=== PATIENT | female | born 1940 | race Caucasian/White ===

== ENCOUNTER 2019-01-06 14:16 | Inpatient (IN) | payer MEDICARE, OTHER, MEDICAID ==
[2019-01-06] MEDS ORDERED: Ketorolac 30 MG/ML SDV IM ONE (14:34)
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
--- NOTE | 2019-01-06 15:24 | CRLCR ---
Indication: Fall, pain Technique: Frontal view of the pelvis and two views left hip Comparison: None Findings: The pelvic ring and proximal left femur are intact. No fracture is demonstrated. The left femoroacetabular joint is anatomically aligned. Hip arthroplasty is noted on the right. There is no significant soft tissue edema. Impression: No acute fracture or dislocation. Dictated by Haylee Christian MD @ Jan 06 2019 3:23PM Signed by Dr. Haylee Christian @ Jan 06 2019 3:23PM
[2019-01-06] MEDS ORDERED: Sodium Chloride 0.9% 1,000 ML IV SCH (15:45)
--- NOTE | 2019-01-06 16:37 | CRLCT ---
HISTORY: Pain. TECHNIQUE: CT left hip without contrast. COMPARISON: Radiographs same day. FINDINGS: Chronic appearing deformity of the coccyx. Within the area of deformity is a possible acute fracture lucency (axial series 4 images 39-41). No other acute fracture. Mild left hip joint space narrowing with small marginal osteophytes. Right total hip arthroplasty. No periprosthetic lucency. No dislocation. Moderate amount of heterotopic ossification around the right hip. Mild degenerative arthrosis of the sacroiliac joints. Pubic symphysis is maintained. No lytic or blastic bone lesions. Atrophy of the right gluteus minimus and gluteus medius muscles. Atrophy of the right iliopsoas musculature. Atrophy of the left gluteus minimus muscle. No soft tissue hematoma. Atherosclerotic calcifications. Colonic diverticulosis. IMPRESSION: 1. Chronic appearing deformity of the coccyx with possible superimposed nondisplaced acute fracture. 2. No other acute findings. No proximal left femur fracture. 3. Mild osteoarthritis of the left hip. Please note that all CT scans at this facility use dose modulation, iterative reconstruction, and/or weight-based dosing when appropriate to reduce radiation dose to as low as reasonably achievable. Dictated by Malik Silver MD @ Jan 06 2019 4:11PM (Electronically Signed)
[2019-01-06] MEDS ORDERED: fentaNYL 100 MCG/2 ML SDV IVPUSH ONE (17:19)
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
[2019-01-06] MEDS ORDERED: Glucose Gel 15 GM in 37.5 GM Tube PO PRN (18:38)
[2019-01-06] MEDS ORDERED: Ondansetron 4 MG/2 ML SDV IV PRN (18:38)
[2019-01-06] MEDS ORDERED: Polyethylene Glycol 3350 Powder 17 GM Packet PO PRN (18:38)
[2019-01-06] MEDS ORDERED: Enoxaparin 30 MG/0.3 ML Syringe SUBCUT SCH (18:38)
[2019-01-06] MEDS ORDERED: Sodium Polystyrene Sulfonate 15 GM/60 ML Susp 60 ML Bot PO ONE (18:38)
[2019-01-06] MEDS ORDERED: 50% Dextrose in Water 50 ML Syringe IV PRN (18:38)
[2019-01-06] MEDS ORDERED: Sodium Chloride 0.9% 10 ML Syringe FLUSH PRN (18:38)
[2019-01-06] MEDS: Sodium Chloride 0.9% 1,000 ML IV SCH (19:24)
[2019-01-06] MEDS ORDERED: [UNRECOGNIZED DRUG - OTHER] SQ SCH (21:00)
[2019-01-06] MEDS ORDERED: INSULIN ASPART SQ SCH (21:00)
[2019-01-06] MEDS ORDERED: INSULN ASP PROT SQ SCH (21:00)
[2019-01-06] MEDS: atorvaSTATin 10 MG Tab PO SCH (22:12)
[2019-01-06] MEDS: Insulin Lispro 100 Unit/ML 3 ML KwikPen SUBCUT SCH (22:12)
[2019-01-06] MEDS: Insulin Lispro Protamine/Lispro 75-25 100 Units/ML 10 ML Vial SUBCUT SCH (22:13)
[2019-01-06] MEDS: Temazepam 15 MG Cap PO PRN (23:28)
[2019-01-06] MEDS: Acetaminophen 325 MG Tab PO PRN (23:36)
[2019-01-07] MEDS ORDERED: Sodium Polystyrene Sulfonate 15 GM/60 ML Susp 60 ML Bot PO ONE (00:11)
[2019-01-07] MEDS: Sodium Chloride 0.9% 1,000 ML IV SCH ×2 (03:43→11:44)
[2019-01-07] MEDS: Insulin Lispro 100 Unit/ML 3 ML KwikPen SUBCUT SCH ×4 (08:56→22:16)
[2019-01-07] MEDS: Metoprolol Succinate 50 MG Tab.ER PO SCH ×2 (09:02→09:39)
[2019-01-07] MEDS: Aspirin 81 MG Tab.EC PO SCH (09:02)
[2019-01-07] MEDS: Insulin Lispro Protamine/Lispro 75-25 100 Units/ML 10 ML Vial SUBCUT SCH ×3 (09:09→17:52)
--- NOTE | 2019-01-07 12:12 | PCM.PN ---
- General Info Date of Service: 01/07/19 Subjective Update: Ms. Pulliam has been stable since admission. There has been improvement in her lateral hip pain. Creatinine stable and hyperkalemia has resolved. Functional Status: Reports: Pain Controlled, Tolerating Diet, Ambulating, Urinating - Review of Systems General: Reports: No Symptoms Pulmonary: Reports: No Symptoms Cardiovascular: Reports: No Symptoms Gastrointestinal: Reports: No Symptoms - Patient Data Vitals - Most Recent: Last Vital Signs Temp 97.5 F 01/07/19 11:00 Pulse 61 01/07/19 11:00 Resp 18 01/07/19 11:00 BP 127/41 L 01/07/19 11:00 Pulse Ox 98 01/07/19 11:00 Weight - Most Recent: 148 lb 0.011 oz I&O - Last 24 Hours: Intake & Output 01/06/19 01/07/19 01/07/19 22:59 06:59 14:59 Intake Total 1652 360 Output Total 150 150 400 Balance -150 1502 -40 Lab Results Last 24 Hours: Laboratory Results - last 24 hr 01/06/19 01/06/19 01/06/19 Range/Units 14:35 14:35 17:00 WBC 8.5 (4.5-11.0) K/uL RBC 3.31 (3.30-5.50) M/uL Hgb 10.7 L (12.0-15.0) g/dL Hct 33.4 L (36.0-48.0) % MCV 101 H (80-98) fL MCH 32 H (27-31) pg MCHC 32 (32-36) % Plt Count 184 (150-400) K/uL Neut % (Auto) 84 H (36-66) % Lymph % (Auto) 11 L (24-44) % [place] % (Auto) 5 (2-6) % Eos % (Auto) 0 L (2-4) % Baso % (Auto) 0 (0-1) % Sodium 133 L (140-148) mmol/L Potassium 5.8 H (3.6-5.2) mmol/L Chloride 98 L (100-108) mmol/L Carbon Dioxide 25 (21-32) mmol/L Anion Gap 15.8 H (5.0-14.0) mmol/L BUN 76 H* (7-18) mg/dL Creatinine 4.5 H* (0.6-1.0) mg/dL Est Cr Clr Drug Dosing 9.49 mL/min Estimated GFR (MDRD) 9 L (>60) Glucose 233 H (74-106) mg/dL Calcium 11.5 H (8.5-10.1) mg/dL Urine Color Yellow (YELLOW) Urine Appearance Clear (CLEAR) Urine pH 5.5 (5.0-8.0) Ur Specific [place] 1.025 (1.008-1.030) Urine Protein 100 H (NEGATIVE) mg/dL Urine Glucose (UA) Normal (NEGATIVE) mg/dL Urine Ketones Negative (NEGATIVE) mg/dL Urine Occult Blood Trace (NEGATIVE) Urine Nitrite Negative (NEGATIVE) Urine Bilirubin Negative (NEGATIVE) Urine Urobilinogen 0.2 (0.2-1.0) EU/dL Ur Leukocyte Esterase Negative (NEGATIVE) Urine RBC 0-5 (0-5) Urine WBC 0-5 (0-5) Ur Epithelial Cells Few Amorphous Sediment Numerous Urine Bacteria Many Urine Mucus Not seen 01/06/19 01/07/19 01/07/19 Range/Units 22:55 05:00 05:00 WBC 11.0 (4.5-11.0) K/uL RBC 2.73 L (3.30-5.50) M/uL Hgb 9.1 L (12.0-15.0) g/dL Hct 28.1 L (36.0-48.0) % MCV 103 H (80-98) fL MCH 33 H (27-31) pg MCHC 32 (32-36) % Plt Count 161 (150-400) K/uL Neut % (Auto) 59 (36-66) % Lymph % (Auto) 30 (24-44) % [place] % (Auto) 10 H (2-6) % Eos % (Auto) 1 L (2-4) % Baso % (Auto) 0 (0-1) % Sodium 139 L (140-148) mmol/L Potassium 5.0 4.2 (3.6-5.2) mmol/L Chloride 106 (100-108) mmol/L Carbon Dioxide 27 (21-32) mmol/L Anion Gap 10.2 (5.0-14.0) mmol/L BUN 81 H* (7-18) mg/dL Creatinine 4.4 H* (0.6-1.0) mg/dL Est Cr Clr Drug Dosing 10.94 mL/min Estimated GFR (MDRD) 10 L (>60) Glucose 42 L* (74-106) mg/dL Calcium 9.5 D (8.5-10.1) mg/dL Urine Color (YELLOW) Urine Appearance (CLEAR) Urine pH (5.0-8.0) Ur Specific [place] (1.008-1.030) Urine Protein (NEGATIVE) mg/dL Urine Glucose (UA) (NEGATIVE) mg/dL Urine Ketones (NEGATIVE) mg/dL Urine Occult Blood (NEGATIVE) Urine Nitrite (NEGATIVE) Urine Bilirubin (NEGATIVE) Urine Urobilinogen (0.2-1.0) EU/dL Ur Leukocyte Esterase (NEGATIVE) Urine RBC (0-5) Urine WBC (0-5) Ur Epithelial Cells Amorphous Sediment Urine Bacteria Urine Mucus Med Orders - Current: Current Medications Acetaminophen (Tylenol) 650 mg PO Q4H PRN PRN Reason: Pain (Mild 1-3)/fever Last Admin: 01/06/19 23:36 Dose: 650 mg Aspirin (Halfprin) 81 mg PO DAILY [facility] Last Admin: 01/07/19 09:02 Dose: 81 mg Atorvastatin Calcium (Lipitor) 10 mg PO BEDTIME [facility] Last Admin: 01/06/19 22:12 Dose: 10 mg Dextrose (Glutose 15) 15 gm PO ONETIME PRN PRN Reason: Hypoglycemia Dextrose/Water (Dextrose 50% In Water) 50 ml IV ONETIME PRN PRN Reason: Hypoglycemia Enoxaparin Sodium (Lovenox) 30 mg SUBCUT Q24H [facility] Insulin Human Lispro (Humalog) 0 unit SUBCUT QIDACANDBED [facility]; Protocol Last Admin: 01/07/19 08:56 Dose: Not Given Insulin Lispro Protam/Lispro Human (Humalog Mix 75-25) 30 unit SUBCUT BIDAC [facility] Last Admin: 01/07/19 09:09 Dose: 30 units Metoprolol Succinate (Toprol Xl) 50 mg PO DAILY [facility] Last Admin: 01/07/19 09:39 Dose: 50 mg Ondansetron HCl (Zofran) 4 mg IV Q4H PRN PRN Reason: Nausea/Vomiting Last Admin: 01/06/19 19:48 Dose: 4 mg Oxycodone HCl (Oxycodone) 5 mg PO Q4H PRN PRN Reason: Pain (moderate 4-6) Polyethylene Glycol (Miralax) 17 gm PO DAILY PRN PRN Reason: Constipation Ranitidine HCl (Zantac) 150 mg PO DAILY [facility] Last Admin: 01/07/19 09:08 Dose: 150 mg Sodium Chloride (Saline Flush) 10 ml FLUSH ASDIRECTED PRN PRN Reason: Keep Vein Open Temazepam (Restoril) 15 mg PO BEDTIME PRN PRN Reason: Sleep Last Admin: 01/06/19 23:28 Dose: 15 mg Discontinued Medications Enoxaparin Sodium (Lovenox) 30 mg SUBCUT DAILY [facility] Last Admin: 01/06/19 19:24 Dose: 30 mg Fentanyl (Sublimaze) 50 mcg IVPUSH ONETIME ONE Stop: 01/06/19 17:20 Last Admin: 01/06/19 17:25 Dose: 50 mcg Sodium Chloride (Normal Saline) 1,000 mls @ 500 mls/hr IV ASDIRECTED [facility] Last Admin: 01/06/19 15:35 Dose: 500 mls/hr Sodium Chloride (Normal Saline) 1,000 mls @ 125 mls/hr IV ASDIRECTED [facility] Last Admin: 01/07/19 11:44 Dose: 125 mls/hr Insulin Lispro Protam/Lispro Human (Humalog Mix 75-25) 47 [facility] Last Admin: 01/06/19 22:13 Dose: 47 units Ketorolac Tromethamine (Toradol) 30 mg IM ONETIME ONE Stop: 01/06/19 14:35 Last Admin: 01/06/19 14:39 Dose: 30 mg Non-Formulary Medication (Insuln Asp Prot/Insulin Aspart [Novolog Mix 70-30]) 47 units SQ BID [facility] Last Admin: 01/06/19 22:01 Dose: Not Given Ranitidine HCl (Zantac) 150 mg PO BID [facility] Last Admin: 01/06/19 22:01 Dose: Not Given Sodium Polystyrene Sulfonate (Kayexalate) 15 gm PO ONETIME ONE Stop: 01/06/19 18:39 Last Admin: 01/06/19 19:24 Dose: 15 gm Sodium Polystyrene Sulfonate (Kayexalate) 15 gm PO ONETIME ONE Stop: 01/07/19 00:12 Last Admin: 01/07/19 01:53 Dose: Not Given - Exam Quality Assessment: DVT Prophylaxis General: Alert, Oriented, Cooperative, Mild Distress Lungs: Clear to Auscultation, Normal Respiratory Effort Cardiovascular: Regular Rate, Regular Rhythm, No Murmurs GI/Abdominal Exam: Soft, Non-Tender, No Organomegaly, No Distention Extremities: Non-Tender, No Pedal Edema - Problem List Review Problem List Initiated/Reviewed/Updated: Yes - My Orders Last 24 Hours: My Active Orders 01/06/19 17:24 Resuscitation Status Routine 01/06/19 18:38 Patient Status [ADT] Routine Ambulate [RC] QID Blood Glucose Check, Bedside [RC] QIDACANDBED Communication Order [RC] STAT Diabetes Education [RC] Click to Edit Height and Weight [RC] DAILY Intake and Output [RC] QSHIFT Notify Provider Vital Signs [RC] ASDIRECTED Notify Provider [RC] PRN Oxygen Therapy [RC] PRN Peripheral IV Care [RC] . DIRECTED Up With Assistance [RC] ASDIRECTED Up to Chair [RC] QID VTE/DVT Education [RC] Per Unit Routine Vital Signs [RC] Q4H PT Evaluation and Treatment [CONS] Routine Acetaminophen [Tylenol] 650 mg PO Q4H PRN Dextrose 50% in Water 50 ml IV ONETIME PRN Dextrose [Glutose 15] 15 gm PO ONETIME PRN Ondansetron [Zofran] 4 mg IV Q4H PRN Polyethylene Glycol 3350 [MiraLAX] 17 gm PO DAILY PRN Sodium Chloride 0.9% [Saline Flush] 10 ml FLUSH ASDIRECTED PRN Temazepam [Restoril] 15 mg PO BEDTIME PRN oxyCODONE 5 mg PO Q4H PRN Peripheral IV Insertion Adult [OM.PC] Routine 01/06/19 20:00 Insulin Lispro [HumaLOG] See Protocol SUBCUT QIDACANDBED 01/06/19 21:00 atorvaSTATin [Lipitor] 10 mg PO BEDTIME 01/06/19 Dinner 2 Gram Sodium Diet [DIET] 01/07/19 09:00 Aspirin [Halfprin] 81 mg PO DAILY Metoprolol Succinate [Toprol XL] 50 mg PO DAILY Ranitidine [Zantac] 150 mg PO DAILY 01/07/19 12:08 Discontinue Telemetry Monitoring [Cardiac Monitoring Discontinue] [RC] Click to Edit Convert IV to Saline Lock [OM.PC] Routine 01/07/19 16:30 GLUCOSE POC LAB TO COLLECT [POC] QIDACANDBED Insulin Lispro Prot/Lispro [HumaLOG Mix 75-25] 30 unit SUBCUT BIDAC 01/07/19 18:00 Enoxaparin [Lovenox] 30 mg SUBCUT Q24H 01/07/19 21:00 GLUCOSE POC LAB TO COLLECT [POC] QIDACANDBED 01/08/19 05:00 BASIC METABOLIC PANEL,BMP [CHEM] Timed 01/08/19 07:30 GLUCOSE POC LAB TO COLLECT [POC] QIDACANDBED 01/08/19 11:30 GLUCOSE POC LAB TO COLLECT [POC] QIDACANDBED 01/08/19 16:30 GLUCOSE POC LAB TO COLLECT [POC] QIDACANDBED 01/08/19 21:00 GLUCOSE POC LAB TO COLLECT [POC] QIDACANDBED 01/09/19 07:30 GLUCOSE POC LAB TO COLLECT [POC] QIDACANDBED 01/09/19 11:30 GLUCOSE POC LAB TO COLLECT [POC] QIDACANDBED 01/09/19 16:30 GLUCOSE POC LAB TO COLLECT [POC] QIDACANDBED 01/09/19 21:00 GLUCOSE POC LAB TO COLLECT [POC] QIDACANDBED 01/10/19 07:30 GLUCOSE POC LAB TO COLLECT [POC] QIDACANDBED 01/10/19 11:30 GLUCOSE POC LAB TO COLLECT [POC] QIDACANDBED 01/10/19 16:30 GLUCOSE POC LAB TO COLLECT [POC] QIDACANDBED 01/10/19 21:00 GLUCOSE POC LAB TO COLLECT [POC] QIDACANDBED 01/11/19 07:30 GLUCOSE POC LAB TO COLLECT [POC] QIDACANDBED 01/11/19 11:30 GLUCOSE POC LAB TO COLLECT [POC] QIDACANDBED 01/11/19 16:30 GLUCOSE POC LAB TO COLLECT [POC] QIDACANDBED - Plan Plan:: ASSESSMENT AND PLAN ACUTE RENAL FAILURE-most recent creatinine 8 months ago was 1.0. Acute insufficiency likely secondary to dehydration, long-standing diabetes, and recent therapy with Septra. Urinalysis was obtained and shows no evidence of infection or active sediment. Creatinine stable since admission -Saline lock IV -Closely monitor urine output -Reassess labs in a.m. HYPERKALEMIA-resolved -Reassess potassium level in a.m. -Hold ADONIS inhibitor and potassium supplement SOFT TISSUE INJURY-pain left lateral hip after a fall, no evidence of fracture noted on x-ray or CT scan. There was possible acute sacral fracture but she is really not experiencing significant pain in this region. -Pain medication as needed -Physical therapy consult in a.m. TYPE 2 DIABETES MELLITUS -Hold metformin because of acute kidney injury -Continue usual dose of outpatient insulin -Low-dose sliding scale Humalog -4 times a day glucometers MAINTENANCE ISSUES -DVT prophylaxis; Lovenox 30 mg subcutaneous daily -GI prophylaxis; continue outpatient H2 yesenia therapy -Young catheter; not indicated -Nutrition; diabetic diet -Nicotine dependence; not required CODE STATUS-FULL CODE ADMISSION STATUS-patient will be admitted to inpatient status, expect at least a 2 night hospital stay for evaluation and management of problems as outlined above. At the time of this admission I do not reasonably expected evaluation and management of this problem will require more than a 96 hour hospital stay. DISPOSITION-anticipate discharge to home after the hospital stay. PRIMARY CARE PROVIDER-Dr. Matta
[2019-01-07] MEDS ORDERED: Aluminum Hydroxide/Magnesium Hydroxide/Simethicone Susp 30 ML Cup PO PRN (12:13)
[2019-01-07] MEDS: Pantoprazole 40 MG Tab.CR PO SCH (13:24)
[2019-01-07] MEDS: Acetaminophen 325 MG Tab PO PRN (16:02)
[2019-01-07] MEDS: Enoxaparin 30 MG/0.3 ML Syringe SUBCUT SCH (17:50)
[2019-01-07] MEDS: atorvaSTATin 10 MG Tab PO SCH (20:29)
[2019-01-07] MEDS: oxyCODONE 5 MG Tab PO PRN (22:22)
[2019-01-07] MEDS: Temazepam 15 MG Cap PO PRN (22:22)
[2019-01-08] MEDS: Insulin Lispro 100 Unit/ML 3 ML KwikPen SUBCUT SCH ×4 (07:57→21:29)
[2019-01-08] MEDS: Insulin Lispro Protamine/Lispro 75-25 100 Units/ML 10 ML Vial SUBCUT SCH ×2 (08:31→17:48)
[2019-01-08] MEDS: Pantoprazole 40 MG Tab.CR PO SCH (08:37)
[2019-01-08] MEDS: Aspirin 81 MG Tab.EC PO SCH (08:37)
[2019-01-08] MEDS: Metoprolol Succinate 50 MG Tab.ER PO SCH (08:38)
--- NOTE | 2019-01-08 12:32 | PCM.PN ---
- General Info Date of Service: 01/08/19 Subjective Update: Ms. Pulliam has been stable since yesterday, continues to intermittently experience left lateral hip pain especially with activity. She has been able to be out in the hallways walking with assistance of physical therapy or nursing staff. Her creatinine level remains elevated, not climbing, but not significantly improved. Functional Status: Reports: Tolerating Diet, Ambulating, Urinating - Review of Systems General: Reports: Weakness. Denies: Fever, Chills Pulmonary: Reports: No Symptoms Cardiovascular: Reports: No Symptoms Gastrointestinal: Reports: No Symptoms Musculoskeletal: Reports: Leg Pain (Left lateral hip pain) - Patient Data Vitals - Most Recent: Last Vital Signs Temp 97.2 F 01/08/19 11:00 Pulse 54 L 01/08/19 11:00 Resp 16 01/08/19 11:00 BP 134/39 L 01/08/19 11:00 Pulse Ox 97 01/08/19 11:00 Weight - Most Recent: 160 lb 6.4 oz I&O - Last 24 Hours: Intake & Output 01/07/19 01/08/19 01/08/19 22:59 06:59 14:59 Intake Total 480 400 620 Output Total 300 350 250 Balance 180 50 370 Lab Results Last 24 Hours: Laboratory Results - last 24 hr 01/08/19 Range/Units 04:53 Sodium 137 L (140-148) mmol/L Potassium 5.1 (3.6-5.2) mmol/L Chloride 105 (100-108) mmol/L Carbon Dioxide 23 (21-32) mmol/L Anion Gap 14.1 H (5.0-14.0) mmol/L BUN 85 H* (7-18) mg/dL Creatinine 4.3 H* (0.6-1.0) mg/dL Est Cr Clr Drug Dosing 11.20 mL/min Estimated GFR (MDRD) 10 L (>60) Glucose 141 H (74-106) mg/dL Calcium 8.7 (8.5-10.1) mg/dL Med Orders - Current: Current Medications Acetaminophen (Tylenol) 650 mg PO Q4H PRN PRN Reason: Pain (Mild 1-3)/fever Last Admin: 01/07/19 16:02 Dose: 650 mg Al Hydroxide/Mg Hydroxide (Mag-Al Plus) 30 ml PO Q4H PRN PRN Reason: Pain Aspirin (Halfprin) 81 mg PO DAILY [facility] Last Admin: 01/08/19 08:37 Dose: 81 mg Atorvastatin Calcium (Lipitor) 10 mg PO BEDTIME [facility] Last Admin: 01/07/19 20:29 Dose: 10 mg Dextrose (Glutose 15) 15 gm PO ONETIME PRN PRN Reason: Hypoglycemia Dextrose/Water (Dextrose 50% In Water) 50 ml IV ONETIME PRN PRN Reason: Hypoglycemia Enoxaparin Sodium (Lovenox) 30 mg SUBCUT Q24H [facility] Last Admin: 01/07/19 17:50 Dose: 30 mg Insulin Human Lispro (Humalog) 0 unit SUBCUT QIDACANDBED [facility]; Protocol Last Admin: 01/08/19 07:57 Dose: Not Given Insulin Lispro Protam/Lispro Human (Humalog Mix 75-25) 30 unit SUBCUT BIDAC [facility] Last Admin: 01/08/19 08:31 Dose: 30 units Metoprolol Succinate (Toprol Xl) 50 mg PO DAILY [facility] Last Admin: 01/08/19 08:38 Dose: 50 mg Ondansetron HCl (Zofran) 4 mg IV Q4H PRN PRN Reason: Nausea/Vomiting Last Admin: 01/06/19 19:48 Dose: 4 mg Oxycodone HCl (Oxycodone) 5 mg PO Q4H PRN PRN Reason: Pain (moderate 4-6) Last Admin: 01/07/19 22:22 Dose: 5 mg Pantoprazole Sodium (Protonix) 40 mg PO DAILY@0730 [facility] Last Admin: 01/08/19 08:37 Dose: 40 mg Polyethylene Glycol (Miralax) 17 gm PO DAILY PRN PRN Reason: Constipation Ranitidine HCl (Zantac) 150 mg PO DAILY [facility] Last Admin: 01/08/19 08:38 Dose: 150 mg Sodium Chloride (Saline Flush) 10 ml FLUSH ASDIRECTED PRN PRN Reason: Keep Vein Open Temazepam (Restoril) 15 mg PO BEDTIME PRN PRN Reason: Sleep Last Admin: 01/07/19 22:22 Dose: 15 mg Discontinued Medications Enoxaparin Sodium (Lovenox) 30 mg SUBCUT DAILY [facility] Last Admin: 01/06/19 19:24 Dose: 30 mg Fentanyl (Sublimaze) 50 mcg IVPUSH ONETIME ONE Stop: 08/21/19 17:20 Last Admin: 01/06/19 17:25 Dose: 50 mcg Sodium Chloride (Normal Saline) 1,000 mls @ 500 mls/hr IV ASDIRECTED [facility]CLUD[facility] Last Admin: 01/06/19 15:35 Dose: 500 mls/hr Sodium Chloride (Normal Saline) 1,000 mls @ 125 mls/hr IV ASDIRECTED [facility] Last Admin: 01/07/19 11:44 Dose: 125 mls/hr Insulin Lispro Protam/Lispro Human (Humalog Mix 75-25) 47 unit SUBCUT BIDAC [facility] Last Admin: 01/07/19 17:52 Dose: Not Given Ketorolac Tromethamine (Toradol) 30 mg IM ONETIME ONE Stop: 01/06/19 14:35 Last Admin: 01/06/19 14:39 Dose: 30 mg Non-Formulary Medication (Insuln Asp Prot/Insulin Aspart [Novolog Mix 70-30]) 47 units SQ BID [facility] Last Admin: 01/06/19 22:01 Dose: Not Given Ranitidine HCl (Zantac) 150 mg PO BID [facility] Last Admin: 01/06/19 22:01 Dose: Not Given Sodium Polystyrene Sulfonate (Kayexalate) 15 gm PO ONETIME ONE Stop: 01/06/19 18:39 Last Admin: 01/06/19 19:24 Dose: 15 gm Sodium Polystyrene Sulfonate (Kayexalate) 15 gm PO ONETIME ONE Stop: 01/07/19 00:12 Last Admin: 01/07/19 01:53 Dose: Not Given - Exam Quality Assessment: DVT Prophylaxis General: Alert, Oriented, Cooperative, Mild Distress Lungs: Clear to Auscultation, Normal Respiratory Effort Cardiovascular: Regular Rate, Regular Rhythm, No Murmurs GI/Abdominal Exam: Soft, Non-Tender, No Organomegaly, No Distention Extremities: No Pedal Edema, Leg Pain (Pain left lateral hip) - Problem List Review Problem List Initiated/Reviewed/Updated: Yes - My Orders Last 24 Hours: My Active Orders 01/07/19 12:08 Convert IV to Saline Lock [OM.PC] Routine 01/07/19 12:13 Alum Hydrox/Mag Hydrox/Simeth [Mag-Al Plus] 30 ml PO Q4H PRN 01/07/19 12:15 Pantoprazole [ProTONIX] 40 mg PO DAILY@0730 01/07/19 16:30 Insulin Lispro Prot/Lispro [HumaLOG Mix 75-25] 30 unit SUBCUT BIDAC 01/07/19 18:00 Enoxaparin [Lovenox] 30 mg SUBCUT Q24H 01/08/19 12:24 Renal Comp [US] Urgent 01/08/19 16:30 GLUCOSE POC LAB TO COLLECT [POC] QIDACANDBED 01/08/19 21:00 GLUCOSE POC LAB TO COLLECT [POC] QIDACANDBED 01/09/19 05:00 BASIC METABOLIC PANEL,BMP [CHEM] Timed 01/09/19 07:30 GLUCOSE POC LAB TO COLLECT [POC] QIDACANDBED 01/09/19 11:30 GLUCOSE POC LAB TO COLLECT [POC] QIDACANDBED 01/09/19 16:30 GLUCOSE POC LAB TO COLLECT [POC] QIDACANDBED 01/09/19 21:00 GLUCOSE POC LAB TO COLLECT [POC] QIDACANDBED 01/10/19 07:30 GLUCOSE POC LAB TO COLLECT [POC] QIDACANDBED 01/10/19 11:30 GLUCOSE POC LAB TO COLLECT [POC] QIDACANDBED 01/10/19 16:30 GLUCOSE POC LAB TO COLLECT [POC] QIDACANDBED 01/10/19 21:00 GLUCOSE POC LAB TO COLLECT [POC] QIDACANDBED 01/11/19 07:30 GLUCOSE POC LAB TO COLLECT [POC] QIDACANDBED 01/11/19 11:30 GLUCOSE POC LAB TO COLLECT [POC] QIDACANDBED 01/11/19 16:30 GLUCOSE POC LAB TO COLLECT [POC] QIDACANDBED - Plan Plan:: ASSESSMENT AND PLAN ACUTE RENAL FAILURE-most recent creatinine 8 months ago was 1.0. Acute insufficiency likely secondary to dehydration, long-standing diabetes, and recent therapy with Septra. Urinalysis was obtained and shows no evidence of infection or active sediment. Creatinine stable since admission, but not significantly improved. -Renal ultrasound to evaluate for obstruction -Saline lock IV -Closely monitor urine output -Reassess labs in a.m. HYPERKALEMIA-resolved -Reassess potassium level in a.m. -Hold ADONIS inhibitor and potassium supplement SOFT TISSUE INJURY-pain left lateral hip after a fall, no evidence of fracture noted on x-ray or CT scan. There was possible acute sacral fracture but she is really not experiencing significant pain in this region. -Pain medication as needed -Physical therapy consult in a.m. TYPE 2 DIABETES MELLITUS -Hold metformin because of acute kidney injury -Continue usual dose of outpatient insulin -Low-dose sliding scale Humalog -4 times a day glucometers MAINTENANCE ISSUES -DVT prophylaxis; Lovenox 30 mg subcutaneous daily -GI prophylaxis; continue outpatient H2 yesenia therapy -Young catheter; not indicated -Nutrition; diabetic diet -Nicotine dependence; not required CODE STATUS-FULL CODE ADMISSION STATUS-patient will be admitted to inpatient status, expect at least a 2 night hospital stay for evaluation and management of problems as outlined above. At the time of this admission I do not reasonably expected evaluation and management of this problem will require more than a 96 hour hospital stay. DISPOSITION-anticipate discharge to home after the hospital stay. PRIMARY CARE PROVIDER-Dr. Matta
--- NOTE | 2019-01-08 14:02 | CRLUS ---
INDICATION: Acute kidney injury TECHNIQUE: Ultrasound renal bilateral. Cai-scale and color Doppler sonographic images were acquired of the kidneys and urinary bladder. COMPARISON: Abdomen CT March 09, 2018 FINDINGS: Right kidney: 12.0 x 5.4 x 5.2 cm. Normal echotexture and cortex. No masses, stones, or hydronephrosis. Left kidney: 10.7 x 5.5 x 6.2 cm. Normal echotexture and cortex. No masses, stones, or hydronephrosis. Bladder: Normal in caliber and appearance. Color Doppler images demonstrate a left ureteral jet. No right-sided ureteral jet identified but no right-sided hydronephrosis was seen. IMPRESSION: Normal renal ultrasound. Dictated by Sherry Davis MD @ Jan 08 2019 1:58PM Signed by Dr. Sherry Davis @ Jan 08 2019 2:00PM
[2019-01-08] MEDS: Enoxaparin 30 MG/0.3 ML Syringe SUBCUT SCH (18:55)
[2019-01-08] MEDS: atorvaSTATin 10 MG Tab PO SCH (21:30)
[2019-01-08] MEDS: oxyCODONE 5 MG Tab PO PRN (22:14)
[2019-01-08] MEDS: Temazepam 15 MG Cap PO PRN (22:14)
[2019-01-09] MEDS: Insulin Lispro 100 Unit/ML 3 ML KwikPen SUBCUT SCH ×4 (07:36→21:00)
[2019-01-09] MEDS: Pantoprazole 40 MG Tab.CR PO SCH (08:32)
[2019-01-09] MEDS: Metoprolol Succinate 50 MG Tab.ER PO SCH (08:34)
[2019-01-09] MEDS: Aspirin 81 MG Tab.EC PO SCH (08:34)
[2019-01-09] MEDS: Insulin Lispro Protamine/Lispro 75-25 100 Units/ML 10 ML Vial SUBCUT SCH ×2 (08:39→16:58)
--- NOTE | 2019-01-09 13:55 | PCM.PN ---
- General Info Date of Service: 01/09/19 Subjective Update: Ms. Pulliam has been stable since yesterday, left lateral hip pain seems to be slowly improving. Renal function is finally shown some improvement with creatinine now down to 3.6. Functional Status: Reports: Tolerating Diet, Ambulating, Urinating - Review of Systems General: Denies: Fever, Chills Pulmonary: Reports: No Symptoms Cardiovascular: Reports: No Symptoms Gastrointestinal: Reports: No Symptoms - Patient Data Vitals - Most Recent: Last Vital Signs Temp 96.5 F 01/09/19 10:44 Pulse 53 L 01/09/19 10:44 Resp 18 01/09/19 10:44 BP 126/45 L 01/09/19 10:44 Pulse Ox 97 01/09/19 10:44 Weight - Most Recent: 162 lb I&O - Last 24 Hours: Intake & Output 01/08/19 01/09/19 01/09/19 22:59 06:59 14:59 Intake Total 480 Output Total 400 700 200 Balance 80 -700 -200 Lab Results Last 24 Hours: Laboratory Results - last 24 hr 01/09/19 Range/Units 05:25 Sodium 138 L (140-148) mmol/L Potassium 4.7 (3.6-5.2) mmol/L Chloride 107 (100-108) mmol/L Carbon Dioxide 24 (21-32) mmol/L Anion Gap 11.7 (5.0-14.0) mmol/L BUN 78 H* (7-18) mg/dL Creatinine 3.6 H* (0.6-1.0) mg/dL Est Cr Clr Drug Dosing 13.38 mL/min Estimated GFR (MDRD) 12 L (>60) Glucose 168 H (74-106) mg/dL Calcium 8.6 (8.5-10.1) mg/dL Med Orders - Current: Current Medications Acetaminophen (Tylenol) 650 mg PO Q4H PRN PRN Reason: Pain (Mild 1-3)/fever Last Admin: 01/07/19 16:02 Dose: 650 mg Al Hydroxide/Mg Hydroxide (Mag-Al Plus) 30 ml PO Q4H PRN PRN Reason: Pain Aspirin (Halfprin) 81 mg PO DAILY [facility] Last Admin: 01/09/19 08:34 Dose: 81 mg Atorvastatin Calcium (Lipitor) 10 mg PO BEDTIME [facility] Last Admin: 01/08/19 21:30 Dose: 10 mg Dextrose (Glutose 15) 15 gm PO ONETIME PRN PRN Reason: Hypoglycemia Dextrose/Water (Dextrose 50% In Water) 50 ml IV ONETIME PRN PRN Reason: Hypoglycemia Enoxaparin Sodium (Lovenox) 30 mg SUBCUT Q24H [facility] Last Admin: 01/08/19 18:55 Dose: 30 mg Insulin Human Lispro (Humalog) 0 unit SUBCUT QIDACANDBED [facility]; Protocol Last Admin: 01/09/19 12:51 Dose: 1 unit Insulin Lispro Protam/Lispro Human (Humalog Mix 75-25) 30 unit SUBCUT BIDAC [facility] Last Admin: 01/09/19 08:39 Dose: 30 units Metoprolol Succinate (Toprol Xl) 50 mg PO DAILY [facility] Last Admin: 01/09/19 08:34 Dose: 50 mg Ondansetron HCl (Zofran) 4 mg IV Q4H PRN PRN Reason: Nausea/Vomiting Last Admin: 01/06/19 19:48 Dose: 4 mg Oxycodone HCl (Oxycodone) 5 mg PO Q4H PRN PRN Reason: Pain (moderate 4-6) Last Admin: 01/08/19 22:14 Dose: 5 mg Pantoprazole Sodium (Protonix) 40 mg PO DAILY@0730 [facility] Last Admin: 01/09/19 08:32 Dose: 40 mg Polyethylene Glycol (Miralax) 17 gm PO DAILY PRN PRN Reason: Constipation Ranitidine HCl (Zantac) 150 mg PO DAILY [facility] Last Admin: 01/09/19 08:34 Dose: 150 mg Sodium Chloride (Saline Flush) 10 ml FLUSH ASDIRECTED PRN PRN Reason: Keep Vein Open Temazepam (Restoril) 15 mg PO BEDTIME PRN PRN Reason: Sleep Last Admin: 01/08/19 22:14 Dose: 15 mg Discontinued Medications Enoxaparin Sodium (Lovenox) 30 mg SUBCUT DAILY [facility] Last Admin: 01/06/19 19:24 Dose: 30 mg Fentanyl (Sublimaze) 50 mcg IVPUSH ONETIME ONE Stop: 01/06/19 17:20 Last Admin: 01/06/19 17:25 Dose: 50 mcg Sodium Chloride (Normal Saline) 1,000 mls @ 500 mls/hr IV ASDIRECTED [facility] Last Admin: 01/06/19 15:35 Dose: 500 mls/hr Sodium Chloride (Normal Saline) 1,000 mls @ 125 mls/hr IV ASDIRECTED [facility] Last Admin: 01/07/19 11:44 Dose: 125 mls/hr Insulin Lispro Protam/Lispro Human (Humalog Mix 75-25) 47 unit SUBCUT BIDAC [facility] Last Admin: 01/07/19 17:52 Dose: Not Given Ketorolac Tromethamine (Toradol) 30 mg IM ONETIME ONE Stop: 01/06/19 14:35 Last Admin: 01/06/19 14:39 Dose: 30 mg Non-Formulary Medication (Insuln Asp Prot/Insulin Aspart [Novolog Mix 70-30]) 47 units SQ BID [facility] Last Admin: 01/06/19 22:01 Dose: Not Given Ranitidine HCl (Zantac) 150 mg PO BID [facility] Last Admin: 01/06/19 22:01 Dose: Not Given Sodium Polystyrene Sulfonate (Kayexalate) 15 gm PO ONETIME ONE Stop: 01/06/19 18:39 Last Admin: 01/06/19 19:24 Dose: 15 gm Sodium Polystyrene Sulfonate (Kayexalate) 15 gm PO ONETIME ONE Stop: 01/07/19 00:12 Last Admin: 01/07/19 01:53 Dose: Not Given - Exam Quality Assessment: DVT Prophylaxis General: Alert, Oriented, Cooperative, Mild Distress Lungs: Clear to Auscultation, Normal Respiratory Effort Cardiovascular: Regular Rate, Regular Rhythm, No Murmurs GI/Abdominal Exam: Soft, Non-Tender, No Organomegaly, No Distention Extremities: Non-Tender, No Pedal Edema - Problem List Review Problem List Initiated/Reviewed/Updated: Yes - My Orders Last 24 Hours: My Active Orders 01/09/19 16:30 GLUCOSE POC LAB TO COLLECT [POC] QIDACANDBED 01/09/19 21:00 GLUCOSE POC LAB TO COLLECT [POC] QIDACANDBED 01/10/19 05:00 BASIC METABOLIC PANEL,BMP [CHEM] Timed 01/10/19 07:30 GLUCOSE POC LAB TO COLLECT [POC] QIDACANDBED 01/10/19 11:30 GLUCOSE POC LAB TO COLLECT [POC] QIDACANDBED 01/10/19 16:30 GLUCOSE POC LAB TO COLLECT [POC] QIDACANDBED 01/10/19 21:00 GLUCOSE POC LAB TO COLLECT [POC] QIDACANDBED 01/11/19 07:30 GLUCOSE POC LAB TO COLLECT [POC] QIDACANDBED 01/11/19 11:30 GLUCOSE POC LAB TO COLLECT [POC] QIDACANDBED 01/11/19 16:30 GLUCOSE POC LAB TO COLLECT [POC] QIDACANDBED - Plan Plan:: ASSESSMENT AND PLAN ACUTE RENAL FAILURE-most recent creatinine 8 months ago was 1.0. Acute insufficiency likely secondary to dehydration, long-standing diabetes, and recent therapy with Septra. Urinalysis was obtained and shows no evidence of infection or active sediment. Ultrasound obtained yesterday shows no evidence of obstruction. Renal function improved creatinine now down to 3.6 -Saline lock IV -Closely monitor urine output -Reassess labs in a.m. HYPERKALEMIA-resolved -Reassess potassium level in a.m. -Hold ADONIS inhibitor and potassium supplement SOFT TISSUE INJURY-pain left lateral hip after a fall, no evidence of fracture noted on x-ray or CT scan. There was possible acute sacral fracture but she is really not experiencing significant pain in this region. -Pain medication as needed -Physical therapy consult in a.m. TYPE 2 DIABETES MELLITUS -Hold metformin because of acute kidney injury -Continue usual dose of outpatient insulin -Low-dose sliding scale Humalog -4 times a day glucometers MAINTENANCE ISSUES -DVT prophylaxis; Lovenox 30 mg subcutaneous daily -GI prophylaxis; continue outpatient H2 yesenia therapy -Young catheter; not indicated -Nutrition; diabetic diet -Nicotine dependence; not required CODE STATUS-FULL CODE ADMISSION STATUS-patient will be admitted to inpatient status, expect at least a 2 night hospital stay for evaluation and management of problems as outlined above. At the time of this admission I do not reasonably expected evaluation and management of this problem will require more than a 96 hour hospital stay. DISPOSITION-anticipate discharge to home tomorrow PRIMARY CARE PROVIDER-Dr. Matta
[2019-01-09] MEDS: Enoxaparin 30 MG/0.3 ML Syringe SUBCUT SCH (17:00)
[2019-01-09] MEDS: atorvaSTATin 10 MG Tab PO SCH (21:01)
[2019-01-09] MEDS: Temazepam 15 MG Cap PO PRN (22:10)
[2019-01-10] MEDS: Pantoprazole 40 MG Tab.CR PO SCH (07:52)
[2019-01-10] MEDS: Insulin Lispro Protamine/Lispro 75-25 100 Units/ML 10 ML Vial SUBCUT SCH (07:53)
[2019-01-10] MEDS: Insulin Lispro 100 Unit/ML 3 ML KwikPen SUBCUT SCH ×2 (07:53→11:21)
[2019-01-10] MEDS: Metoprolol Succinate 50 MG Tab.ER PO SCH (08:00)
[2019-01-10] MEDS: Aspirin 81 MG Tab.EC PO SCH (08:00)
--- NOTE | 2019-01-10 12:06 | PCM.DCSUM1 ---
Discharge Summary - Hospital Course Brief History: Ms. Pulliam is a 78-year-old woman who was admitted through the emergency department with increased pain left lateral hip as well as acute kidney injury, likely secondary to dehydration and recent antibiotic therapy with Septra. - Discharge Data Discharge Date: 01/10/19 Discharge Disposition: Home, Self-Care 01 Condition: Fair - Discharge Diagnosis/Problem(s) (1) Fractured coccyx SNOMED Code(s): 980384153 ICD Code: S32.2XXA - FRACTURE OF COCCYX, INITIAL ENCOUNTER FOR CLOSED FRACTURE Status: Acute Current Visit: Yes Qualifiers: Encounter type: initial encounter Fracture type: closed Qualified Code(s) : S32.2XXA - Fracture of coccyx, initial encounter for closed fracture (2) Acute renal failure SNOMED Code(s): 87361101 ICD Code: N17.9 - ACUTE KIDNEY FAILURE, UNSPECIFIED Status: Acute Current Visit: Yes Qualifiers: Acute renal failure type: unspecified Qualified Code(s): N17.9 - Acute kidney failure, unspecified (3) Type 2 diabetes mellitus SNOMED Code(s): 21151475 ICD Code: E11.9 - TYPE 2 DIABETES MELLITUS WITHOUT COMPLICATIONS Status: Chronic Current Visit: No - Patient Summary/Data Consults: Consultations 01/06/19 18:38 PT Evaluation and Treatment [CONS] Routine Please Evaluate and Treat. PT Reason for Consult: Recent fall This query below is only for informational purposes and is not editable. Hospital Course: Ms. Pulliam is a 78-year-old woman who was admitted through the emergency department with weakness and left lateral hip pain following a fall. On evaluation in the emergency department was found to have evidence of acute kidney failure and hyperkalemia. She has a known history of type 2 diabetes mellitus. Most recent creatinine was 1.0 approximately 8 months ago. She does report that she had a previous episode of acute kidney injury several years back while living in [place]. She recently developed a urinary tract infection and was treated with Septra DS, which she completed 2 days ago. She reports her oral intake is been fairly good. 2 days ago she fell and since then has had left lateral hip pain. Pain in her left lateral hip was the reason that she presented to the emergency department today. X-ray and CT scan of the hip showed no evidence of hip fracture or pelvic fracture. There was question of possible acute sacral fracture but she denies sacral pain. On admission she was given IV fluids for hydration as well as pain medication as needed for her soft tissue injury. Over the course of the next several days of hospitalization kidney function improved and by the time of discharge her creatinine went from 4.52 2.7. Blood glucose levels were monitored throughout her hospital stay and she was managed with subcutaneous insulin as needed. She was seen and evaluated and followed by physical therapy during hospitalization because of her soft tissue pain. Follow-up appointment will be scheduled with her primary care provider for January 12, BMP will be obtained at the time of follow-up appointment for reassessment of renal function. Activity will be as tolerated and she will resume her usual diet. - Patient Instructions Diet: Low Sodium Activity: As Tolerated Other/Special Instructions: Please schedule follow-up appointment with primary care provider within one week. Please obtain BMP at the time of follow-up appointment for reassessment of kidney function. - Discharge Plan *PRESCRIPTION DRUG MONITORING PROGRAM REVIEWED*: Not Applicable *COPY OF PRESCRIPTION DRUG MONITORING REPORT IN PATIENT APRIL: Not Applicable Home Medications: Home Meds Alendronate Sodium [Fosamax] 70 mg PO WEEKLY 03/17/18 [History] Ascorbate Calcium [Vitamin C] 500 mg PO DAILY 03/17/18 [History] Aspirin [Halfprin] 81 mg PO DAILY 03/17/18 [History] Calcium Carbonate 600 mg PO DAILY 03/17/18 [History] Cholecalciferol (Vitamin D3) [Vitamin D3] 1,000 units PO DAILY 03/17/18 [History ] Enalapril [Vasotec] 10 mg PO DAILY 03/17/18 [History] Furosemide [Lasix] 40 mg PO DAILY 03/17/18 [History] Metoprolol Succinate [Toprol Xl] 50 mg PO DAILY 03/17/18 [History] Multivitamin [Multi-Vitamin Daily] 1 tab PO DAILY 03/17/18 [History] Potassium Chloride 20 meq PO DAILY 03/17/18 [History] Temazepam [Restoril] 15 mg PO BEDTIME PRN 03/17/18 [History] Vitamin E 400 unit PO DAILY 03/17/18 [History] Wheat Dextrin [Benefiber] 1 tbsp PO BID 03/17/18 [History] atorvaSTATin [Lipitor] 10 mg PO BEDTIME 03/17/18 [History] metFORMIN HCl [Glucophage] 1,000 mg PO BID 03/17/18 [History] raNITIdine HCl [Zantac] 150 mg PO BID 03/17/18 [History] traMADol [Ultram] 50 mg PO BID PRN 03/17/18 [History] Insuln Asp Prot/Insulin Aspart [NovoLOG Mix 70-30] 47 units SQ BID 01/06/19 [ History] Temazepam 1 cap DAILY 01/06/19 [History] Referrals: Michele Matta MD [Physician] - 01/12/19 10:20 am (Please arrive 15 minutes franco to register for [facility] appointment. ) - Discharge Summary/Plan Comment DC Time >30 min.: No - Patient Data Vitals - Most Recent: Last Vital Signs Temp 98 F 01/10/19 10:48 Pulse 58 L 01/10/19 10:48 Resp 18 01/10/19 10:48 BP 157/45 H 01/10/19 10:48 Pulse Ox 98 01/10/19 10:48 Weight - Most Recent: 161 lb 9.6 oz I&O - Last 24 hours: Intake & Output 01/09/19 01/10/19 01/10/19 22:59 06:59 14:59 Intake Total 590 Output Total 700 900 500 Balance -110 -900 -500 Lab Results - Last 24 hrs: Laboratory Results - last 24 hr 01/09/19 01/10/19 Range/Units 15:31 05:45 Sodium 140 (140-148) mmol/L Potassium 4.5 (3.6-5.2) mmol/L Chloride 109 H (100-108) mmol/L Carbon Dioxide 24 (21-32) mmol/L Anion Gap 11.5 (5.0-14.0) mmol/L BUN 63 H (7-18) mg/dL Creatinine 2.7 H (0.6-1.0) mg/dL Est Cr Clr Drug Dosing 17.83 mL/min Estimated GFR (MDRD) 17 L (>60) Glucose 176 H (74-106) mg/dL Calcium 8.3 L (8.5-10.1) mg/dL Urine Color Yellow (YELLOW) Urine Appearance Clear (CLEAR) Urine pH 5.0 (5.0-8.0) Ur Specific [place] 1.015 (1.008-1.030) Urine Protein Negative (NEGATIVE) mg/dL Urine Glucose (UA) Negative (NEGATIVE) mg/dL Urine Ketones Negative (NEGATIVE) mg/dL Urine Occult Blood Negative (NEGATIVE) Urine Nitrite Negative (NEGATIVE) Urine Bilirubin Negative (NEGATIVE) Urine Urobilinogen 0.2 (0.2-1.0) EU/dL Ur Leukocyte Esterase Small (NEGATIVE) Urine RBC Not seen (0-5) Urine WBC 5-10 H (0-5) Ur Epithelial Cells Moderate Amorphous Sediment Not seen Urine Bacteria Few Urine Mucus Not seen Med Orders - Current: Current Medications Acetaminophen (Tylenol) 650 mg PO Q4H PRN PRN Reason: Pain (Mild 1-3)/fever Last Admin: 01/07/19 16:02 Dose: 650 mg Al Hydroxide/Mg Hydroxide (Mag-Al Plus) 30 ml PO Q4H PRN PRN Reason: Pain Aspirin (Halfprin) 81 mg PO DAILY [facility] Last Admin: 01/10/19 08:00 Dose: 81 mg Atorvastatin Calcium (Lipitor) 10 mg PO BEDTIME [facility] Last Admin: 01/09/19 21:01 Dose: 10 mg Dextrose (Glutose 15) 15 gm PO ONETIME PRN PRN Reason: Hypoglycemia Dextrose/Water (Dextrose 50% In Water) 50 ml IV ONETIME PRN PRN Reason: Hypoglycemia Enoxaparin Sodium (Lovenox) 30 mg SUBCUT Q24H [facility] Last Admin: 01/09/19 17:00 Dose: 30 mg Insulin Human Lispro (Humalog) 0 unit SUBCUT QIDACANDBED [facility]; Protocol Last Admin: 01/10/19 11:21 Dose: 4 unit Insulin Lispro Protam/Lispro Human (Humalog Mix 75-25) 30 unit SUBCUT BIDAC [facility] Last Admin: 01/10/19 07:53 Dose: 30 units Metoprolol Succinate (Toprol Xl) 50 mg PO DAILY [facility] Last Admin: 01/10/19 08:00 Dose: 50 mg Ondansetron HCl (Zofran) 4 mg IV Q4H PRN PRN Reason: Nausea/Vomiting Last Admin: 01/06/19 19:48 Dose: 4 mg Oxycodone HCl (Oxycodone) 5 mg PO Q4H PRN PRN Reason: Pain (moderate 4-6) Last Admin: 01/08/19 22:14 Dose: 5 mg Pantoprazole Sodium (Protonix) 40 mg PO DAILY@0730 [facility] Last Admin: 01/10/19 07:52 Dose: 40 mg Polyethylene Glycol (Miralax) 17 gm PO DAILY PRN PRN Reason: Constipation Ranitidine HCl (Zantac) 150 mg PO DAILY [facility] Last Admin: 01/10/19 08:00 Dose: 150 mg Sodium Chloride (Saline Flush) 10 ml FLUSH ASDIRECTED PRN PRN Reason: Keep Vein Open Temazepam (Restoril) 15 mg PO BEDTIME PRN PRN Reason: Sleep Last Admin: 01/09/19 22:10 Dose: 15 mg Discontinued Medications Enoxaparin Sodium (Lovenox) 30 mg SUBCUT DAILY [facility] Last Admin: 01/06/19 19:24 Dose: 30 mg Fentanyl (Sublimaze) 50 mcg IVPUSH ONETIME ONE Stop: 01/06/19 17:20 Last Admin: 01/06/19 17:25 Dose: 50 mcg Sodium Chloride (Normal Saline) 1,000 mls @ 500 mls/hr IV ASDIRECTED [facility] Last Admin: 01/06/19 15:35 Dose: 500 mls/hr Sodium Chloride (Normal Saline) 1,000 mls @ 125 mls/hr IV ASDIRECTED [facility] Last Admin: 01/07/19 11:44 Dose: 125 mls/hr Insulin Lispro Protam/Lispro Human (Humalog Mix 75-25) [facility] Last Admin: 01/07/19 17:52 Dose: Not Given Ketorolac Tromethamine (Toradol) 30 mg IM ONETIME ONE Stop: 01/06/19 14:35 Last Admin: 01/06/19 14:39 Dose: 30 mg Non-Formulary Medication (Insuln Asp Prot/Insulin Aspart [Novolog Mix 70-30]) 47 units SQ BID [facility] Last Admin: 01/06/19 22:01 Dose: Not Given Ranitidine HCl (Zantac) 150 mg PO BID [facility] Last Admin: 01/06/19 22:01 Dose: Not Given Sodium Polystyrene Sulfonate (Kayexalate) 15 gm PO ONETIME ONE Stop: 01/06/19 18:39 Last Admin: 01/06/19 19:24 Dose: 15 gm Sodium Polystyrene Sulfonate (Kayexalate) 15 gm PO ONETIME ONE Stop: 01/07/19 00:12 Last Admin: 01/07/19 01:53 Dose: Not Given - Exam General: Reports: Alert, Oriented, Cooperative, No Acute Distress Lungs: Reports: Clear to Auscultation, Normal Respiratory Effort Cardiovascular: Reports: Regular Rate, Regular Rhythm, No Murmurs GI/Abdominal Exam: Soft, Non-Tender, No Organomegaly, No Distention Extremities: Non-Tender, No Pedal Edema
== END 2019-01-10 13:01 | disposition home or self-care (01) | DRG 552 ==
LOC: JP.ED 14:16 → JP.MS 17:21
PROVIDERS: ADMIT Hospitalist; ATTEND Hospitalist
DX: S32.2XXA Fracture of coccyx, initial encounter for closed fracture (principal); N17.9 Acute kidney failure, unspecified; E87.1 Hypo-osmolality and hyponatremia; E86.0 Dehydration; E11.9 Type 2 diabetes mellitus without complications; H54.7 Unspecified visual loss; E87.5 Hyperkalemia; M54.9 Dorsalgia, unspecified; I11.0 Hypertensive heart disease with heart failure; I50.9 Heart failure, unspecified; K21.9 Gastro-esophageal reflux disease without esophagitis; G89.29 Other chronic pain; M19.90 Unspecified osteoarthritis, unspecified site; E78.00 Pure hypercholesterolemia, unspecified; H91.90 Unspecified hearing loss, unspecified ear; W19.XXXA Unspecified fall, initial encounter; Z96.641 Presence of right artificial hip joint; Y92.89 Other specified places as the place of occurrence of the external cause; Z79.4 Long term (current) use of insulin; Y93.89 Activity, other specified; Z96.659 Presence of unspecified artificial knee joint; Z79.899 Other long term (current) drug therapy; Z79.82 Long term (current) use of aspirin; Z98.49 Cataract extraction status, unspecified eye; Z90.49 Acquired absence of other specified parts of digestive tract; Z90.710 Acquired absence of both cervix and uterus
CPT/HCPCS: 36415; 51701; 73502; 73700; 80048; 81001; 85025; 96360; 96361; 96372; 99284; 99285; J1885; J7030; 76770; 82962; 84132; 97116-GP; 97162-GP; 97530-GP; A9270-GY; J1650; J1815; J2405; J3010